=== PATIENT | female | born 1940 | race Caucasian/White ===

== ENCOUNTER 2017-09-12 09:03 | Emergency (ER) | payer MEDICARE, MEDICAID ==
[2017-09-12 09:13] VITALS: BMI 25.4
[2017-09-12] MEDS ORDERED: Aluminum Hydroxide/Magnesium Hydroxide Susp (30 mL) PO STA (09:34)
[2017-09-12] MEDS ORDERED: Belladonna-Phenobarbital PO STA (09:34)
[2017-09-12] MEDS ORDERED: Sodium Chloride 0.9% 1,000 ML IV SCH (09:45)
[2017-09-12] MEDS ORDERED: Belladonna-Phenobarbital ONE (10:06)
[2017-09-12] MEDS ORDERED: Aluminum Hydroxide/Magnesium Hydroxide Susp (30 mL) ONE (10:08)
[2017-09-12] MEDS ORDERED: Sodium Chloride 0.9% 1,000 ML ONE (10:08)
[2017-09-12 10:18] LABS: BASO # 0.1 K/uL (0.0-0.2); BASO % 0.7 % (0.0-2.0); EOS % 0.6 % (0.0-4.0); HEMOGLOBIN 12.9 g/dL (11.0-16.0); LYMPH % 29.2 % (20.0-40.0); MEAN CELL VOLUME 91.5 fL (81.0-99.0); MEAN PLATELET VOLUME 8.3 fL (7.2-11.7); MONO # 0.5 K/uL (0.0-0.8); MONO % 7.8 % (0.0-10.0); NEUT # 4.3 K/uL (1.8-7.0); NEUT % 61.7 % (50.0-75.0); RBC 4.03 Mil/uL (3.80-5.20); RED CELL DISTRIBUTION WIDTH 14.1 % (11.5-14.5); WHITE BLOOD COUNT 6.9 K/uL (4.8-10.8)
[2017-09-12 10:28] LABS: SQUAMOUS EPITHIAL 1 /hpf (0-5); URINE BILIRUBIN NEGATIVE (NEGATIVE); URINE BLOOD NEGATIVE (NEGATIVE); URINE CLARITY Clear (Clear); URINE COLOR Straw (YELLOW); URINE GLUCOSE (UA) NORMAL (Normal); URINE LEUKOCYTE ESTERASE 1+ Leu/uL (Negative); URINE PROTEIN NEGATIVE (NEGATIVE); URINE UROBILINOGEN NORMAL mg/dL (0.2-1.0)
[2017-09-12 10:30] LABS: ALB/GLOB RATIO 1.5 (1.0-2.1); ALBUMIN 4.8 g/dL (3.5-5.0); ALT/SGPT 61 U/L (9-52); AST/SGOT 52 U/L (14-36); BLOOD UREA NITROGEN 21 mg/dL (7-17); CALCIUM 9.5 mg/dl (8.6-10.4); GFR AFRICAN-AMERICAN > 60; GFR NON-AFRICAN AMERICAN > 60; LIPASE 151 U/L (23-300)
[2017-09-12] MEDS ORDERED: Iodixanol 320 MG/ML 100 ML BOTTLE IV ONE (10:55)
--- NOTE | 2017-09-12 11:42 | CT ---
PROCEDURE: CT Abdomen and Pelvis with contrast HISTORY: abd pain COMPARISON: Pelvis ultrasound 12/17/2014. TECHNIQUE: Following the intravenous administration of iodinated contrast material, a CT examination of the abdomen and pelvis performed from the domes of the diaphragms to the symphysis pubis with reformatted datasets provided not only axial but also sagittal and coronal planes. Oral contrast was not administered as per referring physician request. Contrast dose: Visipaque 320 Radiation dose: Total exam DLP = 593.96 mGy-cm. This CT exam was performed using one or more of the following dose reduction techniques: Automated exposure control, adjustment of the mA and/or kV according to patient size, and/or use of iterative reconstruction technique. FINDINGS: LOWER THORAX: Tiny hiatal hernia encountered. No pleural or pericardial effusion identified. LIVER: Diminished attenuation throughout the liver indicates hepatic steatosis. No discrete mass or intrahepatic biliary dilatation is appreciated. GALLBLADDER AND BILE DUCTS: Prior cholecystectomy. PANCREAS: Unremarkable. No gross lesion or ductal dilatation. SPLEEN: Unremarkable. ADRENALS: Unremarkable. No mass. KIDNEYS AND URETERS: Unremarkable. No hydronephrosis. No solid mass. VASCULATURE: Unremarkable. No aortic aneurysm. BOWEL: The stomach is collapsed and poorly evaluated. Lack oral contrast limits evaluation the bowel. [id number] fecal materials retained at proximal and transverse large-bowel segments with the distal large bowel collapse. No bowel obstruction identified. Overall small-bowel appears grossly nonfocal. APPENDIX: Normal appendix. PERITONEUM: Unremarkable. No free fluid. No free air. LYMPH NODES: Unremarkable. No enlarged lymph nodes. BLADDER: Urinary bladder appears distended and thin walled. No radiodense urolithiasis associated. REPRODUCTIVE: Heterogeneous density of the uterus, particularly at the left suggests fibroids. BONES: No acute fracture or destructive bony lesion appreciable. OTHER FINDINGS: None. IMPRESSION: 1. No bowel or urinary tract obstruction, mesenteric edema, ascites, abscess or free intraperitoneal gas identified. Normal-appearing appendix. 2. Hepatic steatosis. 3. Prior cholecystectomy.
[2017-09-12 12:32] VITALS: BP 106/72; PULSE 74; RESP 16; TEMP 98.4; O2SAT 97
--- NOTE | 2017-09-12 17:31 | C.PDOC ---
History Of Present Illness 77-year-old female, presents to the emergency department with complaints of upper abdominal pain x6 weeks. Patient notes +mild constipation +nausea, but denies vomiting. She has a Hx of gastritis. No other complaints at this time. Chief Complaint (Nursing): Abdominal Pain History Per: Patient History/Exam Limitations: no limitations Current Symptoms Are (Timing): Still Present Severity: Moderate Past Medical History Reviewed: Historical Data, Nursing Documentation, Vital Signs Vital Signs: Last Vital Signs Temp 98.4 F 09/12/17 12:29 Pulse 74 09/12/17 12:29 Resp 16 09/12/17 12:29 BP 106/72 09/12/17 12:29 Pulse Ox 97 09/12/17 17:35 - Medical History PMH: Anxiety, Arthritis, CHF, Diabetes, HTN, Hypercholesterolemia Surgical History: Cholecystectomy Family History: States: No Known Family Hx - Social History Hx Alcohol Use: No Hx Substance Use: No - Immunization History Hx Tetanus Toxoid Vaccination: No Hx Influenza Vaccination: Yes Hx Pneumococcal Vaccination: Yes Review Of Systems Constitutional: Negative for: Fever, Chills Gastrointestinal: Positive for: Nausea, Abdominal Pain, Constipation Musculoskeletal: Negative for: Back Pain Skin: Negative for: Rash Neurological: Negative for: Weakness, Numbness, Headache, Dizziness Physical Exam - Physical Exam Appears: Non-toxic, No Acute Distress Skin: Normal Color, Warm, Dry, No Rash Head: Atraumatic, Normacephalic Eye(s): bilateral: Normal Inspection Nose: Normal Oral Mucosa: Moist Lips: Normal Appearing Neck: Normal ROM Chest: Symmetrical Cardiovascular: Rhythm Regular, No Murmur Respiratory: Normal Breath Sounds, No Accessory Muscle Use Gastrointestinal/Abdominal: Soft, Tenderness (mild, upper), No Guarding, No Rebound Extremity: Normal ROM, No Deformity, No Swelling Neurological/Psych: Oriented x3, Normal Speech ED Course And Treatment - Laboratory Results Result Diagrams: 09/12/17 10:05 09/12/17 10:05 O2 Sat by Pulse Oximetry: 97 (RA) Pulse Ox Interpretation: Normal Medical Decision Making Medical Decision Making: Plan: * CT Abd/Pel * Bloodwork * , Maalox, IVF, Zofran * UA * Reassess and Disposition Disposition - Disposition Referrals: Kevin Pulido MD [Staff Provider] - Disposition: HOME/ ROUTINE Disposition Time: 11:45 Condition: GOOD Additional Instructions: KADE ANGULO, thank you for letting us take care of you today. Your provider was Karan Robison DO and you were treated for STOMACH PAIN. The emergency medical care you received today was directed at your acute symptoms. If you were prescribed any medication, please fill it and take as directed. It may take several days for your symptoms to resolve. Return to the Emergency Department if your symptoms worsen, do not improve, or if you have any other problems. Please contact your doctor or call one of the physicians/clinics you have been referred to that are listed on the Patient Visit Information form that is included in your discharge packet. Bring any paperwork you were given at discharge with you along with any medications you are taking to your follow up visit. Our treatment cannot replace ongoing medical care by a primary care provider outside of the emergency department. Thank you for allowing the [facility] team to be part of your care today. Follow up with your primary care doctor in 2-3 days for re-evaluation and further management. KADE ANGULO, allison por dejarnos atenderlo constantino. Hammond proveedor fue Karan Robison DO y usted recibi tratamiento para el DOLOR DE ESTMAGO. La atencin mdica de emergencia que recibi hoy estaba dirigida a delfina sntomas agudos. Si le prescribieron algn medicamento, llnelo y tome segn las indicaciones. Delfina s ntomas pueden tardar varios mccann en resolverse. Regrese al Departamento de Emergencia si edlfina sntomas empeoran, no mejoran o si tiene algn otro problema. Comunquese con hammond mdico o llame a yvonne de los mdicos / clnicas a los que garrison sido referido que figura en el formulario de Informacin de visita del paciente que se incluye en hammond paquete de arvind. Traiga todos los documentos que recibi al momento del arvind junto con los medicamentos que est tomando en hammond visita de seguimiento. Nuestro tratamiento no puede reemplazar la atencin mdica en curso por un proveedor de atencin primaria fuera del departamento de emergencia. Allison por permitir que el equipo de [facility] sea parte de hammond cuidado hoy. Doni un seguimiento con hammond mdico de atencin primaria en 2-3 mccann para sajan nueva evaluacin y administracin adicional. Prescriptions: Docusate [Colace] 100 mg PO Q8 PRN #20 cap PRN Reason: Constipation Instructions: Constipation, Adult (DC) Forms: Gen Discharge Inst [place] Citizen, [place] ([place] Citizen) Print Language: SUDANESE - Clinical Impression Clinical Impression: Constipation - Scribe Statement The provider has reviewed the documentation as recorded by the Scribe (Jodie Lucia) All medical record entries made by the Scribe were at my direction and personally dictated by me. I have reviewed the chart and agree that the record accurately reflects my personal performance of the history, physical exam, medical decision making, and the department course for this patient. I have also personally directed, reviewed, and agree with the discharge instructions and disposition.
== END 2017-09-12 12:32 | disposition home or self-care (01) ==
LOC: C.ER 09:03
DX: K59.00 Constipation, unspecified (principal)
CPT/HCPCS: 74177; 80053; 81001; 83690; 85025; 87086; 96361; 96374; 99285; J2405; J7030; Q9967

== ENCOUNTER 2017-11-02 16:20 | Emergency (ER) | payer MEDICARE, MEDICAID ==
[2017-11-02 16:20] VITALS: BMI 25.4
--- NOTE | 2017-11-02 16:45 | C.PDOC ---
History Of Present Illness 77 year old female presents to ED with daughter that states she has had a cough with chest congestion for the past 2 weeks. Daughter reports her mothers primary care physician Dr. Pulido started her on 550 mg of amoxicillin 3 times a day, and promethazine cough syrup. Prescribed medication did not alleviate any of her symptoms. Daughter reports patient continues to cough and produces white, sometimes green sputum. Daughter states patient has shortness of breath, tightness in her chest, and is exacerbated when trying to breathe. She also states patient has had similar episodes in [place] 5 months ago and she was diagnosed with pneumonia. Denies fever, nausea, vomiting. Time Seen by Provider: 11/02/17 16:38 Chief Complaint (Nursing): Chest Pain History Per: Family (daughter) History/Exam Limitations: no limitations Onset/Duration Of Symptoms: Days Current Symptoms Are (Timing): Still Present Quality: Tightness (in chest. ) Associated Symptoms: denies: Nausea Exacerbating Factors: Deep Breathing Past Medical History Reviewed: Historical Data, Nursing Documentation, Vital Signs Vital Signs: Last Vital Signs Temp 98.7 F 11/02/17 19:16 Pulse 65 11/02/17 19:16 Resp 15 11/02/17 19:16 BP 132/59 L 11/02/17 19:16 Pulse Ox 98 11/02/17 19:24 - Medical History PMH: Anxiety, Arthritis, CHF, Diabetes, HTN, Hypercholesterolemia Surgical History: Cholecystectomy Family History: States: No Known Family Hx - Social History Hx Alcohol Use: No Hx Substance Use: No - Immunization History Hx Tetanus Toxoid Vaccination: No Hx Influenza Vaccination: Yes Hx Pneumococcal Vaccination: Yes Review Of Systems Constitutional: Negative for: Fever Cardiovascular: Negative for: Chest Pain Respiratory: Positive for: Cough, Shortness of Breath, Sputum (white, sometimes green) Gastrointestinal: Negative for: Nausea, Vomiting Neurological: Negative for: Weakness, Numbness Physical Exam - Physical Exam Appears: Non-toxic, No Acute Distress Skin: Warm, Dry Head: Atraumatic, Normacephalic Eye(s): bilateral: Normal Inspection Oral Mucosa: Moist Chest: Symmetrical Respiratory: No Normal Breath Sounds (sound coarse), Rhonchi (diffusely), Wheezing (mild wheezing transmitted airway sounds.) Gastrointestinal/Abdominal: Soft Neurological/Psych: Oriented x3 Gait: Steady ED Course And Treatment - Laboratory Results Result Diagrams: 11/02/17 17:29 11/02/17 17:29 Lab Interpretation: No Acute Changes ECG: Interpreted By Me ECG Rhythm: Sinus Rhythm ECG Interpretation: Normal O2 Sat by Pulse Oximetry: 98 (RA) Pulse Ox Interpretation: Normal - Radiology CXR: Interpreted by Me CXR Interpretation: Yes: No Acute Disease Reevaluation Time: 19:40 Reassessment Condition: Improved (Much better after Duoneb and albuterol via nebulizer.) Medical Decision Making Medical Decision Making: Impression: cough Plan: * EKG * labs * X-Ray chest, two views * Albuterol 0.083% * Albuterol/Ipratropium Disposition Counseled Patient/Family Regarding: Studies Performed, Diagnosis, Need For Followup, Rx Given - Disposition Referrals: Kevin Pulido MD [Staff Provider] - Disposition: HOME/ ROUTINE Disposition Time: 19:40 Condition: IMPROVED Additional Instructions: Continue the Amoxicillin and Promethazine as prescribed. Prescriptions: Albuterol HFA [Ventolin HFA 90 mcg/actuation (8 g)] 2 puff IH [id number] PRN #1 inhaler PRN Reason: Wheezing Azithromycin [Z-Irvin] 250 mg PO DAILY #6 tab Instructions: Acute Bronchitis, Asthma in Adults Forms: [employer] (Turkmen) Print Language: GREEK - Clinical Impression Clinical Impression: Asthmatic bronchitis - Scribe Statement The provider has reviewed the documentation as recorded by the Jaya Jones Bernabe Provider Attestation: All medical record entries made by the Jaya were at my direction and personally dictated by me. I have reviewed the chart and agree that the record accurately reflects my personal performance of the history, physical exam, medical decision making, and the department course for this patient. I have also personally directed, reviewed, and agree with the discharge instructions and disposition.
[2017-11-02] MEDS ORDERED: Albuterol-Ipratrop 3 mg / 0.5 (3 ml) UD IH STA (16:48)
[2017-11-02] MEDS ORDERED: Albuterol 0.083% Inhal Sol (2.5 mg/3 mL) UD IH STA (16:48)
[2017-11-02 17:35] LABS: BASO # 0.1 K/uL (0.0-0.2); BASO % 1.1 % (0.0-2.0); EOS # 0.2 K/uL (0.0-0.7); EOS % 3.3 % (0.0-4.0); HEMOGLOBIN 11.9 g/dL (11.0-16.0); LYMPH # 2.3 K/uL (1.0-4.3); LYMPH % 41.1 % (20.0-40.0); MEAN CELL VOLUME 91.8 fL (81.0-99.0); MEAN CORPUSCULAR HEMOGLOBIN 31.7 pg (27.0-31.0); MEAN CORPUSCULAR HGB CONC 34.6 g/dL (33.0-37.0); MEAN PLATELET VOLUME 7.3 fL (7.2-11.7); MONO # 0.5 K/uL (0.0-0.8); MONO % 9.1 % (0.0-10.0); NEUT # 2.6 K/uL (1.8-7.0); NEUT % 45.4 % (50.0-75.0); NRBC % 0.1 % (0.0-2.0); RBC 3.75 Mil/uL (3.80-5.20); WHITE BLOOD COUNT 5.7 K/uL (4.8-10.8)
[2017-11-02 17:56] LABS: ALB/GLOB RATIO 1.6 (1.0-2.1); ALBUMIN 4.3 g/dL (3.5-5.0)
--- NOTE | 2017-11-02 18:15 | RAD ---
Date of service: 11/02/2017 HISTORY: Pneumonia COMPARISON: No prior. TECHNIQUE: Chest PA and lateral FINDINGS: LUNGS: No active pulmonary disease. PLEURA: No significant pleural effusion identified. No pneumothorax apparent. CARDIOVASCULAR: Normal. OSSEOUS STRUCTURES: No significant abnormalities. VISUALIZED UPPER ABDOMEN: Surgical clips noted at the right upper quadrant abdomen. Mildly elevated right hemidiaphragm. OTHER FINDINGS: None. IMPRESSION: No acute cardiopulmonary disease appreciable. Mildly elevated right hemidiaphragm noted, indeterminate etiology.
[2017-11-02] MEDS ORDERED: Sodium Chloride 0.9% 1,000 ML IV ONE (18:29)
[2017-11-02] MEDS ORDERED: Sodium Chloride 0.9% 1,000 ML ONE (19:01)
[2017-11-02 19:17] VITALS: BP 132/59; PULSE 65; RESP 15; TEMP 98.7
[2017-11-02 19:25] VITALS: O2SAT 98
--- NOTE | 2017-11-04 12:05 | CARD ---
APPROVED REPORT Date of service: 11/02/2017 EKG Measurement Heart [id number] <Conclusion> Normal sinus rhythm Septal infarct, age undetermined Abnormal ECG
== END 2017-11-02 19:52 | disposition home or self-care (01) ==
LOC: C.ER 16:20
DX: J45.909 Unspecified asthma, uncomplicated (principal)
CPT/HCPCS: 71046; 80053; 85025; 87040; 93005; 94640; 96360; 99284; J7030